=== PATIENT | female | born 1950 | race Caucasian/White ===

== ENCOUNTER 2016-11-08 23:34 | Emergency (ER) | payer OTHER, BC ==
[~2016-11-08 23:34] MED LIST: ADVAIR 100/501 DISK IH; ALBUTEROL SULF8.5 GM IH; ALEVE220 MG PO; ASPIR-TRIN325 M1 PO; BIOFREEZE TP; CARAFATE1 GM PO; CEFTIN500 MG PO; CITALOPRAM HBR20 MG PO; DAILY VITAMIN1 EAC8 PO; DESOXIMETASONE15 G1 TP; FLONASE16 G1 BOTH NARES; LO-DOSE ASPIRIN81 M1 PO; LORATADINE10 M2 PO; LORAZEPAM0.5 MG PO; MIRALAX255 GM PO; NEXIUM40 MG PO; PREDNISONE10 MG PO; PREVACID30 MG PO; PRILOSEC20 MG PO; PROAIR HFA8.5 GM IH; Prevacid PO; RANITIDINE HCL300 MG PO; VALIUM2 MG PO; VENTOLIN HFA18 GM IH; ZANTAC300 MG PO; ZOFRAN ODT4 MG PO; ZOFRAN4 MG PO
== END 2016-11-09 00:14 | disposition left against medical advice (07) ==
LOC: EME 23:34
DX: G43.909 Migraine, unspecified, not intractable, without status migrainosus (principal); Z98.890 Other specified postprocedural states; Z53.21 Procedure and treatment not carried out due to patient leaving prior to being seen by health care provider

== ENCOUNTER 2017-09-19 01:42 | Observation (INO) | payer OTHER ==
[~2017-09-19] VITALS: Ht 162.6 cm; Wt 76.4 kg
[2017-09-19 02:12] LABS: HEMATOCRIT 40.8 % (36.0-46.0); HEMOGLOBIN 14.1 G/DL (11.9-15.5); MCH 33.3 PG (29.0-34.0); MCHC 34.6 G/DL (30.0-36.0); MCV 96.5 FL (83-99); PLATELET COUNT 251 K/uL (156-360); RBC DIS.WIDTH-CV 12.2 % (11.8-14.6); RBC DIS.WIDTH-SD 43.3 % (39-53); RED BLOOD COUNT 4.23 M/uL (3.80-5.20); WHITE BLOOD COUNT 5.4 K/uL (4.1-10.2)
[2017-09-19 02:24] LABS: ALBUMIN 3.7 g/dL (3.2-4.8); CHLORIDE 107 mEq/L (99-109); POTASSIUM 3.8 mEq/L (3.7-5.4); SODIUM 141 mEq/L (136-147)
[2017-09-19 02:26] LABS: GLUCOSE 107 mg/dL (70-99)
[2017-09-19 02:27] LABS: TOTAL PROTEIN 6.6 g/dL (6.4-8.3)
[2017-09-19 02:28] LABS: TOTAL BILIRUBIN 0.4 mg/dL (0.0-1.0)
[2017-09-19 02:30] LABS: ALKALINE PHOSPHATASE 54 IU/L (3-129); CREATININE 0.8 mg/dL (0.6-1.3); GFR ESTIMATE (CALCULATED) > 59 mL/min/
[2017-09-19 02:31] LABS: UREA NITROGEN (BUN) 13 mg/dL (9-23)
[2017-09-19 02:32] LABS: AST (GOT) 19 IU/L (2-34)
[2017-09-19 02:33] LABS: ALT (GPT) 19 IU/L (3-49); LIPASE 215 U/L (1.0-51.0)
[2017-09-19 02:36] LABS: TROP-I INTERPRETATION NEGATIVE; TROPONIN-I < 0.01 ng/mL (0.0-0.30)
[2017-09-19 03:10] LABS: APPEARANCE CLEAR ((CLEAR)); BILIRUBIN NEGATIVE; BLOOD SMALL; COLOR STRAW ((YELLOW)); GLUCOSE (STRIP) NEGATIVE; KETONES NEGATIVE; LEUKOCYTES SMALL; NITRITE NEGATIVE; PROTEIN (STRIP) NEGATIVE; SPECIFIC GRAVITY 1.004 (1.000-1.030); UROBILINOGEN 0.2 MG/DL (0.2-1.0)
[2017-09-19 03:31] LABS: BACTERIA NONE SEEN /HPF; EPITHELIAL CELLS RARE /HPF; MUCUS TRACE /LPF; RED BLOOD CELLS 0-5 /HPF (0-5); UCUL ADDED? YES
[2017-09-19 08:29] LABS: TROP-I INTERPRETATION NEGATIVE; TROPONIN-I < 0.01 ng/mL (0.0-0.30)
[2017-09-19 08:58] LABS: HDL CHOLESTEROL 51 MG/DL (Desirable>=50); LDL CHOLESTEROL 108 mg/dL (Desirable<100); NON-HDL CHOLESTEROL 121 mg/dL (Desirable<160); TOTAL CHOLESTEROL 172 mg/dL (Desirable<200); TRIGLYCERIDES 65 MG/DL (Normal: <150)
[2017-09-19] MEDS ORDERED: MIRALAX17 GM PO (09:43)
[2017-09-19] MEDS ORDERED: BUSPAR15 MG PO (09:45)
[2017-09-19] MEDS ORDERED: MOBIC15 MG PO (09:47)
[2017-09-19] MEDS ORDERED: RESTASIS MULTI5.5 ML BOTH EYES (09:50)
[2017-09-19 11:44] VITALS: BP 152/85
== END 2017-09-19 11:00 | disposition home or self-care (01) ==
LOC: EME → EDBD 01:42 → EDOF 04:55 → ENRESERV 04:56 → EDOF 11:00 → CANRESERV 11:01 → ENRESERV 11:01
PROVIDERS: Emergency Medicine; Physician Assistant Medical
DX: K85.90 Acute pancreatitis without necrosis or infection, unspecified (principal); K44.9 Diaphragmatic hernia without obstruction or gangrene; K21.9 Gastro-esophageal reflux disease without esophagitis; F41.9 Anxiety disorder, unspecified; K76.89 Other specified diseases of liver; M48.00 Spinal stenosis, site unspecified; M19.90 Unspecified osteoarthritis, unspecified site; G89.29 Other chronic pain; M54.9 Dorsalgia, unspecified; M25.559 Pain in unspecified hip; M79.606 Pain in leg, unspecified; E66.3 Overweight; Z68.28 Body mass index [BMI] 28.0-28.9, adult
CPT/HCPCS: 71046; 76705; 80053; 80061; 81003; 83690; 84484; 85027; 87086; 93005; 99281; 99285; G0378

== ENCOUNTER → 2017-09-30 | Outpatient (CLI) | payer OTHER ==
[~2017-09-30] MED LIST changes: +BUSPAR15 MG PO; +MIRALAX17 GM PO; +MOBIC15 MG PO; +RESTASIS MULTI5.5 ML BOTH EYES
== END | disposition home or self-care (01) ==
LOC: NUC 06:47
DX: K76.89 Other specified diseases of liver (principal)
CPT/HCPCS: 78227; A9537; J2805